=== PATIENT | female | born 1995 | race African-American/Black ===

== ENCOUNTER 2018-01-16 13:46 | Emergency (ER) | payer BC ==
[~2018-01-16] VITALS: Ht 182.9 cm; Wt 136.0 kg
[2018-01-16 13:52] VITALS: Ht 182.9 cm; Wt 136.0 kg
--- NOTE | 2018-01-16 14:38 | DIAGNOSTIC IMAGING REPORT ---
LEFT SHOULDER 3 VIEWS HISTORY: Left shoulder pain. COMPARISON: None. FINDINGS: There is no fracture or dislocation. Soft tissues are unremarkable. No radiopaque foreign bodies. IMPRESSION: No fractures. Electronically signed by: Brooks Rivera M.D. 01/16/2018 2:37 PM Dictated Date/Time: 01/16/2018 2:35 PM
[2018-01-16] MEDS ORDERED: ACETAMINOPHEN 325 MG TAB ONE (15:57)
[2018-01-16 16:26] VITALS: BP 145/97; PULSE 90; TEMP 36.7; O2SAT 99
--- NOTE | 2018-01-17 13:33 | EMERGENCY ROOM VISIT NOTE ---
ED Visit Note First contact with patient: 13:51 Chief Complaint: Left shoulder pain. History of Present Illness: Ms. vázquez is a 22-year-old black female who is brought into the ED via ambulance complaining of anterior left shoulder pain. Patient reports approximately 4 hours ago she was working hard in her computer and when she twisted her upper body she developed an acute onset of anterior left shoulder pain. Since that time her pain has been continuous with movement and has resolved with nonmovement. She describes her pain as a sharp sensation. She places her discomfort in the area between the pectoralis major and the upper portions of the biceps. She rates her discomfort 5/10. Her pain is nonradiating. She has not taken any medications for her pain prior to arrival to the hospital. As noted above her pain occurs only with movement and resolves at rest. Associated with her pain she does report intermittently she has a tingling sensation over the posterior forearm starting just inferior to the elbow and extending to the mid shaft She denies any associated neck pain, arm weakness/numbness, recent direct or repetitive trauma, previous significant injury or surgeries. Review of Systems: As noted above in history of present illness. Past Medical History: Patient denies. Current Medications: Patient denies. Allergies to Medications: Patient denies. Social History: Patient is a university student; she feels safe in her home environment; she denies tobacco use. Physical Examination: Vital Signs: Date Time Temp Pulse Resp B/P (MAP) Pulse Ox O2 Delivery O2 Flow Rate FiO2 01/16/18 16:26 36.7 90 21 145/97 99 01/16/18 13:52 36.7 89 20 150/96 99 GENERAL: 22-year-old female in mild distress due to pain, nontoxic-appearing, afebrile and hemodynamically stable. NEUROLOGICAL: Awake, alert and oriented to person, place and time. Answering questions appropriately and following commands. Normal gait. Good hand eye coordination. No focal motor or sensory deficits. SKIN: Warm, dry and pink. No soft tissue eruptions or trauma noted. BACK: No tenderness over the bony cervical or thoracic spine. No tenderness throughout the paraspinous muscles and no palpable spasm. LEFT UPPER EXTREMITY: No gross bony deformity. Was not able to elicit any tenderness over the clavicle, acromion clavicular joint, humeral head, humeral shaft or scapula. There was no muscular tenderness. No local erythema, edema or ecchymosis. She does have increased pain with flexion and abduction of the shoulder against resistance but no increasing pain with other movements. Full range of motion of the shoulder. Muscle strength was 4/5 of all movements of the shoulder, elbow and forearm. Throughout the extremity the skin was warm and pink and capillary refill was brisk. She is able to distinguish light sensations to all dermatomes. ED Course: Patient is assessed as noted above. Patient's medication list was reviewed. Patient was given 650 mg of acetaminophen for pain. Left Shoulder X-Rays: Were read by myself and the radiologist showing no acute fractures or dislocations. Patient was placed in an arm sling. Patient was educated about today's findings and instructed on her treatment plan ; she verbalized understanding and agreement with this plan Clinical Impression: Left anterior shoulder pain. Decision-Making: Initially my differential diagnosis I considered dislocation, early arthritis, fracture, muscle strain, tendinitis and other causes. Disposition: Patient discharged home in stable condition; prior to departure she was reassessed and subjectively reported she was feeling better and rated her discomfort 2/10 Plan: Comfort measures were discussed with the patient including rest, ice, sling use and alternating ibuprofen and acetaminophen. Patient was encouraged to come out of her sling every couple hours while awake and do simple range of motion exercises of the shoulder and elbow. Patient was encouraged to follow-up with orthopedics if no better in 7 days. Patient was encouraged return the ED for worsening/uncontrolled pain, uncontrolled swelling, worsening numbness/tingling or weakness of the arm.
== END 2018-01-16 16:27 | disposition home or self-care (01) ==
LOC: EDBD 13:46 → C.EDD 13:48
DX: M25.512 Pain in left shoulder (principal)